=== PATIENT | male | born 1975 | race Caucasian/White ===

== ENCOUNTER 2019-12-26 20:53 | Emergency (ER) | payer OTHER ==
[2019-12-26] MEDS ORDERED: Cyclobenzaprine 10 MG Tab PO ONE (20:54)
[2019-12-26] MEDS ORDERED: Ketorolac 10 MG Tab PO ONE (20:54)
[2019-12-26] MEDS ORDERED: Ketorolac 60 MG/2 ML SDV IM ONE (21:02)
[2019-12-26] MEDS ORDERED: hydrOXYzine HCl 50 MG/ML SDV IM ONE (21:02)
--- NOTE | 2019-12-26 21:08 | EDM.PDOC ---
ED HPI GENERAL MEDICAL PROBLEM - General Stated Complaint: NECK PAIN Time Seen by Provider: 12/26/19 21:03 Source of Information: Reports: Patient History Limitations: Reports: No Limitations - History of Present Illness INITIAL COMMENTS - FREE TEXT/NARRATIVE: Dwayne complains of neck and upper back pain since yesterday. Has tried OTC Meds with no relief.No trauma. Now radiating to he head and causing a headache. Previously has worked with a chiropractor. He does not endorse any infection symptoms eg cough,fever or chills. No sore throat. No photophobia.He endorses fatigue. IN the ED,he was found to have a fever. - Related Data Allergies Allergy/AdvReac Type Severity Reaction Status Date / Time azithromycin [From Zithromax] Allergy Hives Verified 12/28/19 13:56 Home Meds: Home Meds Acetaminophen/Codeine [Tylenol with Codeine No.3 300MG/30MG] 1 tab PO Q4H PRN [History] Past Medical History HEENT History: Reports: Impaired Vision Cardiovascular History: Reports: Hypertension Other Cardiovascular History: FOLLOWED WITH [facility] PRIMARY PHYSICIAN, NOT CURRENTLY MEDICATING Respiratory History: Reports: Pneumonia, Recurrent Other Respiratory History: TEEN Gastrointestinal History: Reports: Other (See Below) Other Gastrointestinal History: HEMORRHOIDS WITH RECTAL BLEEDING, PAST 2 YEARS, 3 X PER YEAR. Genitourinary History: Reports: None SOCIAL WORK COORDINATOR History: Reports: None Musculoskeletal History: Reports: None Neurological History: Reports: None Psychiatric History: Reports: Panic Attack Other Psychiatric History: STATES HAD PANIC ATTACKS WITH STRESS R/T WORK ET LIFE ISSUES MANY YEARS AGO. Endocrine/Metabolic History: Reports: None Hematologic History: Reports: None Immunologic History: Reports: None Oncologic (Cancer) History: Reports: None Dermatologic History: Reports: Other (See Below) Other Dermatologic History: WINTER DRY SKIN LOOKS LIKE ECZEMA, BUT HAS NEVER BEEN TREATED. RASH LIKE AREAS IN EYEBROWS, OCCASIONALLY USES SOME SORT OF RX CREAM FOR THIS, BUT DOES NOT RECALL WHAT. STATES HAS HAD MED OR A LONG TIME. - Infectious Disease History Infectious Disease History: Reports: Chicken Pox - Past Surgical History Head Surgeries/Procedures: Reports: None ED ROS GENERAL - Review of Systems Review Of Systems: Comprehensive ROS is negative, except as noted in HPI. ED EXAM, UPPER BACK/NECK PAIN - Physical Exam Exam: See Below Exam Limited By: No Limitations General Appearance: Alert, WD/WN, No Apparent Distress Ears Exam: Normal External Exam Nose Exam: Normal Inspection Head Exam: Atraumatic, Normocephalic Neck Exam: Non-Tender, Normal Alignment, Normal Inspection, Muscle Spasm, Painful Range of Motion, Tender Lateral. 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 As Tested, No Motor/Sensory Deficits Psychiatric: Normal Affect Skin Exam: Normal Color Comments: Negative Brudzinski and Negative Kernigs Course - Vital Signs Last Recorded V/S: Last Vital Signs Temp 100 F 12/26/19 23:40 Pulse 91 12/26/19 23:40 Resp 18 12/26/19 23:40 BP 120/71 12/26/19 23:05 Pulse Ox 96 12/26/19 23:40 - Orders/Labs/Meds Labs: Laboratory Tests 12/26/19 12/26/19 12/26/19 Range/Units 21:50 21:50 21:50 WBC 8.0 (4.5-12.0) X10-3/uL RBC 4.96 (4.30-5.75) x10(6)uL Hgb 15.1 (13.5-17.8) g/dL Hct 43.6 (30.0-51.3) % MCV 87.8 (80-96) fL MCH 30.4 (27.7-33.6) pg MCHC 34.6 (32.2-35.4) g/dL RDW 12.0 (11.5-15.5) % Plt Count 218 (125-369) X10(3)uL MPV 7.0 L (7.4-10.4) fL Neut % (Auto) 83.3 H (46-82) % Lymph % (Auto) 8.9 L (13-37) % Fannin % (Auto) 6.6 (4-12) % Eos % (Auto) 1 (1.0-5.0) % Baso % (Auto) 0 (0-2) % Neut # (Auto) 6.7 (1.6-8.3) # Lymph # (Auto) 0.7 (0.6-5.0) # Fannin # (Auto) 0.5 (0.0-1.3) # Eos # (Auto) 0.1 (0.0-0.8) # Baso # (Auto) 0.0 (0.0-0.2) # Sodium 135 (135-145) mmol/L Potassium 4.1 (3.5-5.3) mmol/L Chloride 99 L (100-110) mmol/L Carbon Dioxide 29 (21-32) mmol/L BUN 15 (7-18) mg/dL Creatinine 1.3 (0.70-1.30) mg/dL Est Cr Clr Drug Dosing 77.93 mL/min Estimated GFR (MDRD) 59 L (>60) BUN/Creatinine Ratio 11.5 (9-20) Glucose 111 (80-116) mg/dL Lactic Acid 1.0 (0.4-2.0) mmol/L Calcium 9.1 (8.6-10.2) mg/dL C-Reactive Protein (0.5-0.9) mg/dL Urine Color (YELLOW) Urine Appearance (CLEAR) Urine pH (5.0-6.5) Ur Specific [place] (1.010-1.025) Urine Protein (NEGATIVE) mg/dL Urine Glucose (UA) (NORMAL) mg/dL Urine Ketones (NEGATIVE) mg/dL Urine Occult Blood (NEGATIVE) Urine Nitrite (NEGATIVE) Urine Bilirubin (NEGATIVE) Urine Urobilinogen (NEGATIVE) mg/dL Ur Leukocyte Esterase (NEGATIVE) Urine RBC (0-5) Urine WBC (0-5) Ur Squamous Epith Cells (NS,R,O) Urine Bacteria (NS) Fine Granular Casts (NS) Urine Mucus (NS) SARS Virus RNA (PCR) (NEGATIVE) 12/26/19 12/26/19 12/26/19 Range/Units 21:50 22:25 22:30 WBC (4.5-12.0) X10-3/uL RBC (4.30-5.75) x10(6)uL Hgb (13.5-17.8) g/dL Hct (30.0-51.3) % MCV (80-96) fL MCH (27.7-33.6) pg MCHC (32.2-35.4) g/dL RDW (11.5-15.5) % Plt Count (125-369) X10(3)uL MPV (7.4-10.4) fL Neut % (Auto) (46-82) % Lymph % (Auto) (13-37) % [place]ann[place] % (Auto) (4-12) % Eos % (Auto) (1.0-5.0) % Baso % (Auto) (0-2) % Neut # (Auto) (1.6-8.3) # Lymph # (Auto) (0.6-5.0) # Fannin # (Auto) (0.0-1.3) # Eos # (Auto) (0.0-0.8) # Baso # (Auto) (0.0-0.2) # Sodium (135-145) mmol/L Potassium (3.5-5.3) mmol/L Chloride (100-110) mmol/L Carbon Dioxide (21-32) mmol/L BUN (7-18) mg/dL Creatinine (0.70-1.30) mg/dL Est Cr Clr Drug Dosing mL/min Estimated GFR (MDRD) (>60) BUN/Creatinine Ratio (9-20) Glucose (80-116) mg/dL Lactic Acid (0.4-2.0) mmol/L Calcium (8.6-10.2) mg/dL C-Reactive Protein 34.5 H* (0.5-0.9) mg/dL Urine Color Yellow (YELLOW) Urine Appearance Clear (CLEAR) Urine pH 8.0 H (5.0-6.5) Ur Specific [place] 1.010 (1.010-1.025) Urine Protein Trace (NEGATIVE) mg/dL Urine Glucose (UA) Normal (NORMAL) mg/dL Urine Ketones 15 H (NEGATIVE) mg/dL Urine Occult Blood Negative (NEGATIVE) Urine Nitrite Negative (NEGATIVE) Urine Bilirubin Small H (NEGATIVE) Urine Urobilinogen 1 H (NEGATIVE) mg/dL Ur Leukocyte Esterase Small H (NEGATIVE) Urine RBC 0-5 (0-5) Urine WBC 0-5 (0-5) Ur Squamous Epith Cells Few H (NS,R,O) Urine Bacteria Few H (NS) Fine Granular Casts Occasional H (NS) Urine Mucus Moderate H (NS) SARS Virus RNA (PCR) Negative (NEGATIVE) Meds: Medications Discontinued Medications Generic Name Dose Route Start Last Admin Trade Name Chelsie PRN Reason Stop Dose Admin Cyclobenzaprine HCl 80 mg 12/26/19 20:54 Flexeril PO 12/26/19 20:55 .STK-MED ONE Hydroxyzine HCl 50 mg 12/26/19 21:02 12/26/19 21:07 Vistaril IM 12/26/19 21:03 50 mg ONETIME ONE Administration Ketorolac Tromethamine 60 mg 12/26/19 21:02 12/26/19 21:07 Toradol IM 12/26/19 21:03 60 mg ONETIME ONE Administration Ketorolac Tromethamine 80 mg 12/26/19 20:54 Toradol PO 12/26/19 20:55 .STK-MED ONE Departure - Departure Time of Disposition: 22:18 Disposition: Home, Self-Care 01 Clinical Impression: Acute febrile illness, Acute myofascial pain - Discharge Information Instructions: Fever, Adult, Cyclobenzaprine tablets, Muscle Pain, Adult, Ketorolac tablets Referrals: Nick Mcpherson MD [Primary Care Provider] - 1 Day Forms: ED Department Discharge Care Plan Goals: Rest, drink plenty of fluids. Follow up with primary care physician tomorrow. Return to ER if symptoms worsen. Sepsis Event Note - Focused Exam Date Exam was Performed: 12/29/19 Time Exam was Performed: 22:18 - Problem List & Annotations (1) Acute myofascial pain SNOMED Code(s): 385416928 Code(s): M79.18 - MYALGIA, OTHER SITE Status: Acute (2) Acute febrile illness SNOMED Code(s): 628537368 Code(s): R50.9 - FEVER, UNSPECIFIED Status: Acute - Problem List Review Problem List Initiated/Reviewed/Updated: Yes - Assessment/Plan Plan: Toradol 60 mg IM and Vistaril 50 mg IM.His CRP was over 34. Therefore we sent out blood cultures.He felt better after above treatment. Sent home Toradol and Flexeril. See PCP tomorrow,Dr Mcpherson
[2019-12-26 23:14] VITALS: BP 120/71
[2019-12-26 23:49] VITALS: PULSE 91
== END 2019-12-26 23:40 | disposition home or self-care (01) ==
LOC: FB.ED 20:53
DX: R50.9 Fever, unspecified (principal); M79.18 Myalgia, other site; I10 Essential (primary) hypertension; Z88.1 Allergy status to other antibiotic agents
CPT/HCPCS: 36415; 80048; 81001; 83605; 85025; 86140; 87040; 87635; 96372; 99284; A9270; J1885; J3410; U0002

== ENCOUNTER 2019-12-28 13:19 | Emergency (ER) | payer OTHER ==
[2019-12-28] MEDS ORDERED: Lidocaine 1% 20 ML MDV INFILT ONE (13:20)
--- NOTE | 2019-12-28 13:39 | EDM.PDOC ---
ED HPI GENERAL MEDICAL PROBLEM - General Stated Complaint: FEVER, HEADACHE, NECK PAIN Time Seen by Provider: 12/28/19 13:39 Source of Information: Reports: Patient History Limitations: Reports: No Limitations - History of Present Illness INITIAL COMMENTS - FREE TEXT/NARRATIVE: 44-year-old male who reports on Thursday morning begin to have headache with neck pain and stiffness and he developed fever. He had generalized malaise and just felt bad all over. These symptoms seemed to worsen through the day and the following day and Thursday evening he was seen in the emergency department and had blood testing performed which showed an elevated CRP but otherwise normal blood tests. A coronavirus 19 test was performed and was negative. He has had no sore throat. No nasal congestion and no cough. No difficulty breathing. No dysuria or hematuria. He does report that his urine has been dark. He was treated with pain medication and Alling day he followed up with Dr. Mcpherson in clinic and there was some concern that the patient might have a viral meningitis. He was given additional pain medication (Tylenol # 3) and he states that he slept pretty well last night and felt pretty good this morning initially but toward mid day he began to have fever with chills again and worsening headache and neck pain. He presents now for evaluation of this. He has had nausea yesterday morning with dry heaving but no nausea since then. He has been able to take liquids but he has had really no appetite. He has no arm or leg weakness. No vision problems. 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 He is currently rating his pain as 5/10. It is aching and throbbing type pain that seems to radiate from his head and down his neck and into his back. There are no other associated signs or symptoms. There are no other modifying factors. Onset: Other (3 days ago) Duration: Getting Worse Location: Reports: Head, Neck, Generalized Quality: Reports: Ache, Throbbing Severity: Moderate Improves with: Reports: Rest Worsens with: Reports: Other (Activity), Movement Associated Symptoms: Reports: Fever/Chills, Headaches, Other (The was as above) Treatments ROUGE MILLER: Reports: NSAIDS, Other Medication(s) (Tylenol with Codeine) Neck/Headache Pain Score (Numeric/FACES): 5 - Related Data Allergies Allergy/AdvReac Type Severity Reaction Status Date / Time azithromycin [From Zithromax] Allergy Hives Verified 12/28/19 13:56 Home Meds: Home Meds Acetaminophen/Codeine [Tylenol with Codeine No.3 300MG/30MG] 1 tab PO Q4H PRN [History] Past Medical History HEENT History: Reports: Impaired Vision Cardiovascular History: Reports: Hypertension Other Cardiovascular History: FOLLOWED WITH [facility] PRIMARY PHYSICIAN, NOT CURRENTLY MEDICATING Respiratory History: Reports: Pneumonia, Recurrent Other Respiratory History: TEEN Gastrointestinal History: Reports: Hemorrhoids (With some rectal bleeding associated with this.) Psychiatric History: Reports: Panic Attack Other Psychiatric History: STATES HAD PANIC ATTACKS WITH STRESS R/T WORK ET LIFE ISSUES MANY YEARS AGO. Dermatologic History: Reports: Other (See Below) Other Dermatologic History: WINTER DRY SKIN LOOKS LIKE ECZEMA, BUT HAS NEVER BEEN TREATED. RASH LIKE AREAS IN EYEBROWS, OCCASIONALLY USES SOME SORT OF RX CREAM FOR THIS, BUT DOES NOT RECALL WHAT. STATES HAS HAD MED OR A LONG TIME. - Infectious Disease History Infectious Disease History: Reports: Chicken Pox - Past Surgical History Other Surgical History Comment: No previous surgeries. 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[employer].) ED ROS GENERAL - Review of Systems Review Of Systems: See Below Constitutional: Reports: Fever, Chills, Malaise, Decreased Appetite HEENT: Reports: No Symptoms Respiratory: Reports: No Symptoms Cardiovascular: Reports: No Symptoms Endocrine: Reports: No Symptoms GI/Abdominal: Reports: Nausea (With dry heaving yesterday morning but none since that time.) : Reports: No Symptoms Musculoskeletal: Reports: Neck Pain, Other (Some body aches) Skin: Reports: No Symptoms Neurological: Reports: Headache Hematologic/Lymphatic: Reports: No Symptoms Immunologic: Reports: No Symptoms ED EXAM, GENERAL - Physical Exam Exam: See Below Exam Limited By: No Limitations General Appearance: Alert, WD/WN, Moderate Distress (Appears in some discomfort. He is somewhat tachycardic and febrile but otherwise nontoxic. He is and appropriate in his conversation.) Eye Exam: Bilateral Eye: EOMI, Normal Inspection (Sclera are anicteric.) Ears: Normal External Exam, Hearing Grossly Normal Ear Exam: Bilateral Ear: Auricle Normal Nose: Normal Inspection, Normal Mucosa, No Blood Throat/Mouth: Normal Inspection, Normal Oropharynx, Normal Voice, No Airway Compromise, Other (He does have somewhat dry mucous membranes.) Head: Atraumatic, Normocephalic Neck: Normal Inspection, Supple, Non-Tender, Full Range of Motion, Other (No meningismus.) Respiratory/Chest: No Respiratory Distress, Lungs Clear, Normal Breath Sounds, No Accessory Muscle Use, Chest Non-Tender Cardiovascular: Normal Peripheral Pulses, No Murmur, Tachycardia Peripheral Pulses: 2+: Radial (L), Radial (R), Dorsalis Pedis (L), Dorsalis Pedis (R) GI/Abdominal: Normal Bowel Sounds, Soft, Non-Tender, No Mass Back Exam: Normal Inspection, Full Range of Motion Extremities: Normal Inspection, Normal Range of Motion, Non-Tender, No Pedal Edema, Normal Capillary Refill Neurological: Alert, Oriented, CN II-XII Intact, Normal Cognition, No Motor/ Sensory Deficits Psychiatric: Normal Affect Skin Exam: Warm, Dry, Intact, Normal Color, No Rash Lymphatic: No Adenopathy ED GENERAL MEDICAL PROCEDURES - Lumbar Puncture Indication: Fever, Headache, Other (Neck stiffness and pain) Consent Obtained: Patient Position: Right Prep: CDC/MBT Guidelines, Sterile Drapes, Betadine, Chlorhexidine Local Anesthesia - Lidocaine (Xylocaine): 1% Plain Local Anesthetic Volume: Other (10 mL's) Vertebral Interspace: L3/L4, L4/L5 (Initial attempt was the L4-L5 space and then had to move up to the L3-L4 space) Spinal Needle with Stylet: 22ga, 3.5 Inch (Adult) Number of Attempts: 2 Fluid Appearance: Clear Opening Pressure: 19 (Closing pressure was 18.3.) Tubes Obtained: 4 Total Fluid Amount: Other (5 mL's) Complications: No Sterile Dressing: Adhesive Dressing (Patient tolerated the procedure well. There were no apparent complications.) Course - Vital Signs Last Recorded V/S: Last Vital Signs Temp 36.2 C 12/28/19 18:07 Pulse 90 12/28/19 18:07 Resp 18 12/28/19 18:07 BP 113/69 12/28/19 18:07 Pulse Ox 95 12/28/19 18:07 - Orders/Labs/Meds Orders: Active Orders 24 hr Category Date Time Status Chest 2V [CR] Stat Exams 12/28/19 18:19 Taken Anaplasma [A. PHAGOCYTOPHILUM PCR] Urgent Lab 12/28/19 14:30 Received CELL COUNT, CSF Stat Lab 12/28/19 16:40 Received CULTURE BLOOD [BC] Urgent Lab 12/28/19 14:30 Received CULTURE BLOOD [BC] Urgent Lab 12/28/19 14:37 Received CULTURE CSF + SMEAR [RM] Stat Lab 12/28/19 16:40 Results Sodium Chloride 0.9% [Normal Saline] 1,000 ml Med 12/28/19 14:15 Active IV ASDIRECTED Blood Culture x2 Reflex Set [OM.PC] Urgent Oth 12/28/19 14:02 Ordered Medication Orders Sodium Chloride (Normal Saline) 1,000 mls @ 150 mls/hr IV ASDIRECTED PARMINDER Last Admin: 12/28/19 18:18 Dose: 150 mls/hr Infusion: 12/28/19 18:17 Dose: 999 mls/hr Infusion: 12/28/19 17:35 Dose: 999 mls/hr Admin: 12/28/19 15:32 Dose: 150 mls/hr Labs: Laboratory Tests 12/28/19 12/28/19 12/28/19 Range/Units 14:30 14:30 14:30 WBC 7.2 (4.5-12.0) X10-3/uL RBC 4.72 (4.30-5.75) x10(6)uL Hgb 13.6 (13.5-17.8) g/dL Hct 41.4 (30.0-51.3) % MCV 87.7 (80-96) fL MCH 28.9 (27.7-33.6) pg MCHC 33.0 (32.2-35.4) g/dL RDW 11.8 (11.5-15.5) % Plt Count 197 (125-369) X10(3)uL MPV 7.2 L (7.4-10.4) fL Neut % (Auto) 84.4 H (46-82) % Lymph % (Auto) 8.2 L (13-37) % [place] % (Auto) 6.9 (4-12) % Eos % (Auto) 0 L (1.0-5.0) % Baso % (Auto) 0 (0-2) % Neut # (Auto) 6.1 (1.6-8.3) # Lymph # (Auto) 0.6 (0.6-5.0) # [place] # (Auto) 0.5 (0.0-1.3) # Eos # (Auto) 0.0 (0.0-0.8) # Baso # (Auto) 0.0 (0.0-0.2) # Sodium 133 L (135-145) mmol/L Potassium 3.9 (3.5-5.3) mmol/L Chloride 95 L (100-110) mmol/L Carbon Dioxide 27 (21-32) mmol/L BUN 17 (7-18) mg/dL Creatinine 1.5 H (0.70-1.30) mg/dL Est Cr Clr Drug Dosing 67.54 mL/min Estimated GFR (MDRD) 50 L (>60) BUN/Creatinine Ratio 11.3 (9-20) Glucose 102 (80-116) mg/dL Lactic Acid 1.2 (0.4-2.0) mmol/L Calcium 8.6 (8.6-10.2) mg/dL Total Bilirubin 1.6 H (0.1-1.3) mg/dL AST 43 H (5-25) IU/L ALT 92 H (12-36) U/L Alkaline Phosphatase 139 H (56-112) IU/L C-Reactive Protein (0.5-0.9) mg/dL Total Protein 7.4 (6.0-8.0) g/dL Albumin 3.1 L (3.5-5.2) g/dL Globulin 4.3 g/dL Albumin/Globulin Ratio 0.7 CSF Glucose (40-70) mg/dL CSF Total Protein (15-45) mg/dL 12/28/19 12/28/19 Range/Units 14:30 16:40 WBC (4.5-12.0) X10-3/uL RBC (4.30-5.75) x10(6)uL Hgb (13.5-17.8) g/dL Hct (30.0-51.3) % MCV (80-96) fL MCH (27.7-33.6) pg MCHC (32.2-35.4) g/dL RDW (11.5-15.5) % Plt Count (125-369) X10(3)uL MPV (7.4-10.4) fL Neut % (Auto) (46-82) % Lymph % (Auto) (13-37) % [place] % (Auto) (4-12) % Eos % (Auto) (1.0-5.0) % Baso % (Auto) (0-2) % Neut # (Auto) (1.6-8.3) # Lymph # (Auto) (0.6-5.0) # [place]man # (Auto) (0.0-1.3) # Eos # (Auto) (0.0-0.8) # Baso # (Auto) (0.0-0.2) # Sodium (135-145) mmol/L Potassium (3.5-5.3) mmol/L Chloride (100-110) mmol/L Carbon Dioxide (21-32) mmol/L BUN (7-18) mg/dL Creatinine (0.70-1.30) mg/dL Est Cr Clr Drug Dosing mL/min Estimated GFR (MDRD) (>60) BUN/Creatinine Ratio (9-20) Glucose (80-116) mg/dL Lactic Acid (0.4-2.0) mmol/L Calcium (8.6-10.2) mg/dL Total Bilirubin (0.1-1.3) mg/dL AST (5-25) IU/L ALT (12-36) U/L Alkaline Phosphatase (56-112) IU/L C-Reactive Protein 41.4 H* (0.5-0.9) mg/dL Total Protein (6.0-8.0) g/dL Albumin (3.5-5.2) g/dL Globulin g/dL Albumin/Globulin Ratio CSF Glucose 58 (40-70) mg/dL CSF Total Protein 39 (15-45) mg/dL Meds: Medications Generic Name Dose Route Start Last Admin Trade Name Freq PRN Reason Stop Dose Admin Sodium Chloride 1,000 mls @ 150 mls/hr 12/28/19 14:15 12/28/19 18:18 Normal Saline IV 150 mls/hr ASDIRECTED PARMINDER Administration Discontinued Medications Generic Name Dose Route Start Last Admin Trade Name Chelsie PRN Reason Stop Dose Admin Acetaminophen 1,000 mg 12/28/19 14:04 12/28/19 14:30 Tylenol Extra Strength PO 12/28/19 14:05 1,000 mg ONETIME ONE Administration Ceftriaxone Sodium 2 gm 12/28/19 18:36 12/28/19 18:41 Rocephin IVPUSH 12/28/19 18:37 2 gm ONETIME ONE Administration Sodium Chloride 1,000 mls @ 999 mls/hr 12/28/19 14:04 12/28/19 14:28 Normal Saline IV 12/28/19 15:04 999 mls/hr .BOLUS ONE Administration Sodium Chloride 1,000 mls @ 999 mls/hr 12/28/19 17:29 12/28/19 18:12 Normal Saline IV 12/28/19 18:29 Not Given .BOLUS ONE Doxycycline Hyclate 100 mg/ 100 mls @ 100 mls/hr 12/28/19 18:36 12/28/19 19: 38 Sodium Chloride IV 12/28/19 19:35 100 mls/hr ONETIME ONE Administration Ketorolac Tromethamine 30 mg 12/28/19 15:31 12/28/19 15:44 Toradol IVPUSH 12/28/19 15:32 30 mg ONETIME ONE Administration Morphine Sulfate 4 mg 12/28/19 14:04 12/28/19 14:30 Morphine IVPUSH 12/28/19 14:05 4 mg ONETIME ONE Administration Ondansetron HCl 4 mg 12/28/19 14:04 12/28/19 14:30 Zofran IVPUSH 12/28/19 14:05 4 mg ONETIME ONE Administration - Radiology Interpretation Free Text/Narrative:: CT scan of the head no bleeding. The radiologist was somewhat concerned about a slight asymmetry in the temporal horns but he felt that this could just be positioning. The patient is having no symptoms of a stroke. - Re-Assessments/Exams Free Text/Narrative Re-Assessment/Exam: 12/28/19 16:00: The patient's fever did get up to 103F in the emergency department. His blood tests and show an elevated CRP of about the same over the has been. His white blood cell count was normal. His platelet count was normal. He does have some mild LFT abnormalities now. The CT scan of his head was negative. Urine was negative from days ago and he has no urinary symptoms other than dark-colored urine. The patient will need a lumbar puncture to rule in or out meningitis. This with the patient. I discussed the risk and the benefits associated with doing the procedure. The patient has given written consent to proceed with lumbar puncture. 12/28/19 18:50: Patient is feeling improved. No headache. Fever has defervesced. He did have a slight elevation in his creatinine and I have given him a total of 2 L bolus of normal saline. He has been able to get up to go to the bathroom and produce urine and no recurrence symptoms with this. He does feel very fatigued and "washed out". He is having no difficulty breathing or cough. I did send him for chest x-ray, nonetheless, and I think there is a possible right posterior medial lower lobe infiltrate. 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 The glucose and protein were negative. The cell count and differential had to be sent to [facility] for testing and we did get the white blood cell count back and it was 9. The differential for the white blood cell count in the CSF is pending. The other alternative besides meningitis would be tickborne disease (anaplasmosis). I feel the patient will need admission with IV fluids, IV antibiotics and further observation. I had previously discussed the patient's case with Dr. Mcpherson and he does not feel comfortable with the patient being admitted here and feels that he would potentially need specialty services (infectious disease, neurology) which are not available at [facility]. The patient would want me to discuss this case with the doctors at [facility] in [place] and therefore I will call and discuss his case with the doctors at [facility] in [place]. I am treating the patient with Rocephin 2 g IV and doxycycline 100 mg IV empirically and will continue IV fluid hydration with normal saline. 12/28/19 19:10: Discussed patient's case with Dr. Martinez, hospitalist at [facility] in [place], he has agreed to accept the patient in transfer. The patient will be transferred via ambulance to [facility] for direct admission. The patient is in agreement with the plans for transfer. Departure - Departure Time of Disposition: 20:06 Disposition: DC/Tfer to Acute Hospital 02 Condition: Good (Stable/improved) Clinical Impression: Acute febrile illness, SIRS (systemic inflammatory response syndrome), Acute kidney injury - Discharge Information Referrals: PCP,None [Primary Care Provider] - Forms: ED Department Discharge Sepsis Event Note - Focused Exam Vital Signs: Vital Signs Temp Pulse Resp BP Pulse Ox 12/28/19 18:07 36.2 C 90 18 113/69 95 12/28/19 16:53 36.9 C 104 H 18 93/57 L 95 12/28/19 15:47 38.7 C H 112 H 20 121/66 93 L 12/28/19 14:56 39.7 C H 12/28/19 14:45 39.9 C H 126 H 20 125/74 97 12/28/19 13:20 39.4 C H 116 H 20 103/55 L 94 L Date Exam was Performed: 12/28/19 Time Exam was Performed: 20:10 - My Orders Last 24 Hours: My Active Orders 12/28/19 14:02 Blood Culture x2 Reflex Set [OM.PC] Urgent 12/28/19 14:15 Sodium Chloride 0.9% [Normal Saline] 1,000 ml IV ASDIRECTED 12/28/19 14:30 Anaplasma [A. PHAGOCYTOPHILUM PCR] Urgent CULTURE BLOOD [BC] Urgent 12/28/19 14:37 CULTURE BLOOD [BC] Urgent 12/28/19 16:40 CELL COUNT, CSF Stat CULTURE CSF + SMEAR [RM] Stat 12/28/19 18:19 Chest 2V [CR] Stat - Assessment/Plan Last 24 Hours: My Active Orders 12/28/19 14:02 Blood Culture x2 Reflex Set [OM.PC] Urgent 12/28/19 14:15 Sodium Chloride 0.9% [Normal Saline] 1,000 ml IV ASDIRECTED 12/28/19 14:30 Anaplasma [A. PHAGOCYTOPHILUM PCR] Urgent CULTURE BLOOD [BC] Urgent 12/28/19 14:37 CULTURE BLOOD [BC] Urgent 12/28/19 16:40 CELL COUNT, CSF Stat CULTURE CSF + SMEAR [RM] Stat 12/28/19 18:19 Chest 2V [CR] Stat
[2019-12-28] MEDS ORDERED: Acetaminophen 500 MG Tab PO ONE (14:04)
[2019-12-28] MEDS ORDERED: Ondansetron 4 MG/2 ML SDV IVPUSH ONE (14:04)
[2019-12-28] MEDS ORDERED: Morphine 2 MG/ML Syringe IVPUSH ONE (14:04)
[2019-12-28] MEDS ORDERED: Sodium Chloride 0.9% 1,000 ML IV ONE ×2 (14:04→17:29)
[2019-12-28] MEDS ORDERED: Ketorolac 30 MG/ML SDV IVPUSH ONE (15:31)
[2019-12-28] MEDS: Sodium Chloride 0.9% 1,000 ML IV SCH ×2 (15:32→18:18)
--- NOTE | 2019-12-28 16:32 | CT ---
INDICATION: Headache with fever since Thursday. CT HEAD WITHOUT CONTRAST: Spiral 3.75 mm axial sections were obtained through the brain without contrast with sagittal and coronal reconstructions 12/28/19 - no comparison. Total exam DLP was 1425.39 mGy-cm. The mastoid air cells and paranasal sinuses are well aerated. The orbits appear to be intact. No definite cranial abnormality was seen. No shift of midline structures, ventricular abnormalities or abnormal areas of density were identified - no bleeding site or hematoma seen. There is an area of decreased density at the caudal aspect of the basal ganglia on the left, which may represent asymmetrical temporal horn of the lateral ventricle on the left. With this appearance, less likely would be a lacunar infarct. IMPRESSION: No acute intracranial abnormality - essentially normal CT Brain without contrast. Report was called to Dr. Alcazar at 1433 hours. [facility]
[2019-12-28 18:10] VITALS: BP 113/69; PULSE 90
[2019-12-28] MEDS ORDERED: cefTRIAXone 2 GM Vial IVPUSH ONE (18:36)
[2019-12-28] MEDS ORDERED: Doxycycline 100 MG in Sodium Chloride 0.9% 100 ML IV ONE (18:36)
[2019-12-28 20:19] LABS: COLOR, CSF COLORLESS; RBC, CSF 17
--- NOTE | 2019-12-29 10:35 | CR ---
INDICATION: Fever. CHEST, 2 VIEWS: Two PA views and a lateral view of the chest were obtained - no comparisons. Infiltrate is noted posteriorly, apparently in the right lower lobe posteromedially. This finding may be on the basis of pneumonia with moderate degree of consolidation. No other acute process was suggested. Heart, mediastinum and bony structures are unremarkable. IMPRESSION: Right lower lobe posterior basilar infiltration compatible with pneumonia - correlate clinically. [facility]
== END 2019-12-28 20:06 ==
LOC: FB.ED 13:19
DX: R65.11 Systemic inflammatory response syndrome (SIRS) of non-infectious origin with acute organ dysfunction (principal); N17.9 Acute kidney failure, unspecified; I10 Essential (primary) hypertension; Z88.1 Allergy status to other antibiotic agents; Z20.828 Contact with and (suspected) exposure to other viral communicable diseases
CPT/HCPCS: 36415; 62270; 70450; 71046; 80053; 82945; 83605; 84157; 85025; 86140; 87040; 87070; 87205; 87798; 89051; 96361; 96365; 96375; 99285-25; A9270-GY; J0696; J1885; J2001; J2270; J2405; J3490; J7030; J7050